=== PATIENT | female | born 1935 | race Caucasian/White ===

== ENCOUNTER 2018-10-17 19:09 | Emergency (ER) | payer OTHER ==
[~2018-10-17] VITALS: Ht 165.1 cm; Wt 79.4 kg
[2018-10-17 19:33] VITALS: Ht 165.1 cm; Wt 79.4 kg
[2018-10-17 19:58] LABS: BASOPHIL % 0.5 % (0-2); PLATELET COUNT 251 x10^3mcL (130-400)
[2018-10-17 20:04] LABS: RED CELL DISTRIBUTION WIDTH 17.6 % (11.5-14.5)
[2018-10-17 20:07] LABS: CALCIUM 9.4 mg/dL (8.5-10.1); CARBON DIOXIDE 26.1 mmol/L (21-32); CHLORIDE SERUM 105 mmol/L (98-107); CREATININE SERUM 1.1 mg/dL (0.6-1.0); GLUCOSE SERUM 112 mg/dL (74-106); POTASSIUM SERUM 3.9 mmol/L (3.5-5.1); SODIUM SERUM 141 mmol/L (136-145)
[2018-10-17 20:13] LABS: ALBUMIN 2.8 g/dL (3.4-5.0); ALKALINE PHOSPHATASE 74 U/L (46-116); ALT/SGPT 15 U/L (14-59); AST/SGOT 21 U/L (15-37); BILIRUBIN TOTAL 1.1 mg/dL (0.20-1.00); TOTAL PROTEIN, SERUM 6.1 g/dL (6.4-8.2)
[2018-10-17 23:57] VITALS: BP 121/45
== END 2018-10-18 | disposition home or self-care (01) ==
LOC: ED 19:09
PROVIDERS: Emergency Medicine
DX: G30.9 Alzheimer's disease, unspecified (principal); E03.9 Hypothyroidism, unspecified
CPT/HCPCS: 36415; 83880; 87804; Q0092